=== PATIENT | female | born 1970 | race Caucasian/White ===

== ENCOUNTER → 2017-07-06 | Outpatient (CLI) | payer OTHER ==
[2016-05-16 10:30] VITALS: BP 156/77
[~2017-07-06] MED LIST: TRAM-48 PO
--- NOTE | 2017-07-06 15:42 | KCIC ---
ABDOMEN COMPLETE History: Abdominal pain Comparison: None. Findings: Multiple sonographic images of the abdomen are submitted. There is no abnormality of the visualized pancreas, distal body and tail obscured by bowel gas. There is mild diffuse coarsening of the echotexture of the liver. Right lobe of liver measured 14.1 cm longitudinal. Visualized abdominal aortic caliber is within normal limits at 1.7 cm although proximally obscured by bowel gas. There is limited segmental visualization of the proximal inferior vena cava, otherwise obscured by bowel gas. Spleen measured 10.1 cm, associated granulomas. Right kidney measured 12.5 x 5.6 x 5.1 cm. The left kidney measured 12.8 x 6.4 x 4.7 cm. There is no hydronephrosis of either kidney. Gallbladder is present without intraluminal abnormality, wall thickening, pericholecystic fluid. There is demonstrable flow in the main portal vein. Common bile duct is within normal limits at 0.4 cm. Impression: 1. There is likely mild hepatic steatosis. No other significant abnormality is identified. Midline structures are not as well visualized due to bowel gas. Electronically signed by: Adan Osorio MD (07/06/2017 3:39 PM) [facility]-[email or web address]
== END | disposition home or self-care (01) ==
LOC: KCIC US 14:52
PROVIDERS: ATTEND Internal Medicine Gastroenterology
DX: K76.0 Fatty (change of) liver, not elsewhere classified (principal)
CPT/HCPCS: 76700

== ENCOUNTER → 2017-07-12 | Day surgery (SDC) | payer OTHER ==
[~2017-07-12] MED LIST changes: +HYDROmorphone 2 MG/ML VIAL IV PRN; +IV RINGERS,LACTATED 1000ML 1,000 ML IV SCH; +LIDOCAINE 1% 1 ML SYRINGE. ID PRN; +METO50TA2 PO; +MORPHINE SULFATE 2 MG/ML DISP.SYRIN. IV PRN; +ONDANSETRON PF 4 MG/2 ML VIAL. IV PRN; +PROCHLORPERAZINE 10 MG/2 ML VIAL. IV PRN; +PROPOFOL 0 ML IV ONE; +PROPOFOL 20 ML IV ONE; +RANI150C PO; +fentaNYL PF VIAL 100 MCG/2 ML VIAL IV PRN
--- NOTE | 2017-07-12 08:09 | PDOC1 ---
HISTORY & PHYSICAL H&P Melida Pastor [id number] 1970 07/06/2017 02:10 PM 10/31 [facility] [place] OUR PATIENTS COME FIRST [address] [place] [address]. [phone] Patient: Melida Pastor Date of : 1970 Date: 07/06/2017 2:10 PM Visit Type: Consult This 47 year old female presents for Abdominal pain. History of Present Illness: 1. Abdominal pain Duration is 2 Weeks. Location is RUQ. There is radiation to back. The patient describes it as aching, gnawing and sharp. Context: after meals. Symptom is aggravated by heavy meals, respiration, physical exertion and bending over. Denies relieving factors. Additional information: Has mild elevation of WBC. Had been given Vimovo for pain control. C-XRay and rib series is negative. INTAKE COMMENTS: Intake Comments: Nurse Note: the pt is here today with complaints of epigastric pain, the pt states that it starts on the right side and moves to the center, the pt is also having back pain. The pt states that she is having loose "stringy " stool. PROBLEM LIST: No active problems PAST MEDICAL/SURGICAL HISTORY (Detailed) Disease/disorder Onset Date Management Date Comments 09/30/1984 Lump in left breast PP 06/30/2017 - she had 2 benign lumps removed from the left breast Syncope symptom 02/10/2016 PP 06/30/2017 - she had another episode of syncope on May. Medications (Active): Started Medication Directions Instruction Stopped 07/06/2017 Augmentin 875 mg-125 mg tablet take 1 tablet by oral route every 12 hours with food 06/29/2017 metoprolol succinate ER 50 mg tablet,extended release 24 hr take 1 tablet by oral route every day 07/06/2017 omeprazole 20 mg capsule,delayed release take 1 capsule (20MG) by ORAL route every day before breakfast 06/29/2017 tizanidine 4 mg capsule take 1 capsule by oral route daily at HS. 06/29/2017 Tylenol Extra Strength 500 mg tablet take 4 by Oral route bid at 8am and 2pm Allergies: Ingredient Reaction Medication Name Comment NO KNOWN ALLERGIES REVIEW OF SYSTEMS System Neg/Pos Details Constitutional Negative Chills, fever, malaise and weight loss. ENMT Negative Sore throat. Eyes Negative Double vision. Respiratory Negative Dyspnea and wheezing. Cardio Negative Chest pain and irregular heartbeat/palpitations. GI Positive See HPI. GI Negative See HPI. Negative Dysuria and hematuria. Endocrine Negative Cold intolerance and heat intolerance. Psych Negative Anxiety. Integumentary Negative Hives and rash. MS Negative Joint pain. Rik/Lymph Negative Easy bleeding and easy bruising. Allergic/Immuno Negative Food allergies. VITAL SIGNS Time BP mm/Hg Pulse /min Resp /min Temp F Ht ft Ht in Ht cm Wt lb Wt kg BMI kg/ m2 BSA m2 O2 Sat% 2:00 PM 130/96 100 98.0 5.0 7.00 170.18 202.40 91.807 31.70 97 Time Measured by 2:00 PM Anisa Rich PHYSICAL EXAM: Exam Findings Details Constitutional Normal Well developed. Eyes Normal Conjunctiva - Right: Normal, Left: Normal. Sclera - Right: Normal, Left: Normal. Nasopharynx Normal Lips/teeth/gums - Normal. Neck Exam Normal Inspection - Normal. Thyroid gland - Normal. Respiratory Normal Inspection - Normal. Auscultation - Normal. Cardiovascular Normal Regular rate and rhythm. No murmurs, gallops, or rubs. Vascular Normal Pulses - Carotids: Normal, Femoral: Normal, Dorsalis pedis: Normal. Abdomen Normal Inspection - Normal. Anterior palpation - No guarding. No abdominal tenderness. No hepatic enlargement. No splenic enlargement. No hernia. No Ascites. Skin Normal Inspection - Normal. Extremity Normal No edema. Psychiatric Normal Oriented to time, place, person, and situation. Appropriate mood and effect. Assessment/Plan # Detail Type Description 1. Assessment Right upper quadrant abdominal pain (R10.11). Patient Plan Await abdominal sonogram result. Continue Vimovo for now. If sonogram is negative then to consider EGD. 2. Assessment Calculus of gallbladder with acute cholecystitis without obstruction (K80.00). Patient Plan Schedule abdominal sonogram. Plan Orders Further diagnostic evaluations ordered today include(s) Abdomen Ultrasound; Limited (e.g., single organ, quadrant, follow-up) to be performed today. She is to schedule a follow-up visit with Susan Tinoco MD upon completion of work-up Electronically signed by: Susan Tinoco MD 07/06/2017 04:04 PM Document generated by: Susan Tinoco 07/06/2017 04:03 PM Rachel Lam MD, Family Practice; James Encarnacion MD Internal Medicine; Rachel Owens MD, Internal Medicine; Keo Tinoco MD Internal Medicine; Susan Tinoco MD, Gastroenterology; Nelson Snow MD, Rheumatology, S. Keaton Brandon, Physical Medicine/Rehab J. Rufus GARCIAN ------ 07/12/17 Patient seen and examined. No change in H&P. SUSAN TINOCO MD Jul 12, 2017 08:09
[2017-07-12 08:45] VITALS: BP 136/76
[2017-07-12 09:36] LABS: NEG OBC UR NEG; POS OBC UR POS
== END | disposition home or self-care (01) ==
LOC: ENDOS 06:48
PROVIDERS: ATTEND Internal Medicine Gastroenterology
DX: K21.9 Gastro-esophageal reflux disease without esophagitis (principal); F17.200 Nicotine dependence, unspecified, uncomplicated; I10 Essential (primary) hypertension; Z72.0 Tobacco use
CPT/HCPCS: 43235; 81025; J2704

== ENCOUNTER 2017-11-02 09:34 | Emergency (ER) | payer OTHER ==
[2017-11-02 10:40] LABS: INFLUENZA A PATIENT NEGATIVE (NEGATIVE); INFLUENZA B PATIENT NEGATIVE (NEGATIVE); OBC FLU VALID
[2017-11-02 10:42] LABS: NEGATIVE OBC STREP NEG; POSITIVE OBC STREP POS
== END 2017-11-02 11:01 | disposition home or self-care (01) ==
LOC: ER 09:34
DX: B34.9 Viral infection, unspecified (principal)
CPT/HCPCS: 87070; 87804; 87804-59; 87880; 99284

== ENCOUNTER 2018-07-18 12:37 | Emergency (ER) | payer OTHER ==
[~2018-07-18] VITALS: Ht 170.2 cm; Wt 90.7 kg
[~2018-07-18 12:37] MED LIST changes: -HYDROmorphone 2 MG/ML VIAL IV PRN; -IV RINGERS,LACTATED 1000ML 1,000 ML IV SCH; -LIDOCAINE 1% 1 ML SYRINGE. ID PRN; -METO50TA2 PO; +METO50TA6 PO; -MORPHINE SULFATE 2 MG/ML DISP.SYRIN. IV PRN; -ONDANSETRON PF 4 MG/2 ML VIAL. IV PRN; +OSEL75CA PO; -PROCHLORPERAZINE 10 MG/2 ML VIAL. IV PRN; -PROPOFOL 0 ML IV ONE; -PROPOFOL 20 ML IV ONE; -fentaNYL PF VIAL 100 MCG/2 ML VIAL IV PRN
[2018-07-18] MEDS ORDERED: KETOROLAC 30 MG/ML VIAL. IV ONE (13:30)
[2018-07-18] MEDS ORDERED: ONDANSETRON PF 4 MG/2 ML VIAL. IV ONE (13:30)
[2018-07-18] MEDS ORDERED: FAMOTIDINE 20 MG/2 ML VIAL IVP ONE (13:30)
[2018-07-18 13:38] LABS: BASO # 0.1 x10^3/uL (0.0-0.2); BASO % 1 % (0-3); EOS # 0.1 x10^3/uL (0.0-0.7); EOS % 1 % (0-3); HEMATOCRIT 43.2 % (36.0-47.0); HEMOGLOBIN 14.6 g/dL (12.0-15.5); LYMPH % 26 % (24-48); MEAN CORPUSCULAR HEMOGLOBIN 31 pg (25-35); MEAN CORPUSCULAR HGB CONC 34 g/dL (31-37); MEAN CORPUSCULAR VOLUME 93 fL (79-100); MONO # 0.6 x10^3/uL (0.0-1.1); MONO % 5 % (0-9); NEUT # 7.5 x10^3uL (1.8-7.7); NEUT % 66 % (31-73); PLATELET COUNT 266 x10^3/uL (140-400); RED BLOOD COUNT 4.66 x10^6/uL (3.50-5.40); RED CELL DISTRIBUTION WIDTH 13.8 % (11.5-14.5); WHITE BLOOD COUNT 11.3 x10^3/uL (4.0-11.0)
[2018-07-18 13:47] LABS: CALCIUM 9.8 mg/dL (8.5-10.1); CREATININE 0.8 mg/dL (0.6-1.0); GFR 76.6; POTASSIUM 4.2 mmol/L (3.5-5.1)
[2018-07-18 13:53] LABS: ALBUMIN 3.9 g/dL (3.4-5.0); ALBUMIN/GLOBULIN RATIO 1.1 (1.0-1.7); TOTAL BILIRUBIN 0.2 mg/dL (0.2-1.0); TOTAL PROTEIN 7.3 g/dL (6.4-8.2)
--- NOTE | 2018-07-18 14:02 | RAD ---
CHEST PA LATERAL History: Epigastric and left-sided chest pain today, smoking history Comparison: 12/06/2011 Findings: 2 views of the chest are submitted. There is no infiltrate, pneumothorax, or effusion. The cardiac silhouette is within normal limits in size. The trachea is in the midline. No acute osseous abnormality is identified. Impression: 1. There is no evidence of acute cardiopulmonary disease. Electronically signed by: Adan Osorio MD (07/18/2018 1:58 PM) [facility]-[id number]
--- NOTE | 2018-07-18 14:05 | PHYS DOC ---
Past Medical History Past Medical History: Hypertension Past Surgical History: , Tubal ligation Additional Past Surgical Histo: LEFT BREAST CYST REMOVAL Additional Information: 1 PK/DAY Alcohol Use: Occasionally Additional Information: "A COUPLE OF BEERS ON TUESDAY" Drug Use: None Adult General Chief Complaint Chief Complaint: CHEST PAIN HPI HPI Patient is a 48 year old female who presents with epigastric and left under the press pain that started today while she was at work. Patient states when it started she felt a little dizzy and nauseated. She rates her pain a 6 out of 10 and she did call her PCP which told her to come to the emergency room. Review of Systems Review of Systems Constitutional: Denies fever or chills [] Eyes: Denies change in visual acuity, redness, or eye pain [] HENT: Denies nasal congestion or sore throat [] Respiratory: Denies cough or shortness of breath [] Cardiovascular: No additional information not addressed in HPI [] GI: Epigastric abdominal pain, nausea. Denies vomiting, bloody stools or diarrhea [] : Denies dysuria or hematuria [] Musculoskeletal: Denies back pain or joint pain [] Integument: Denies rash or skin lesions [] Neurologic: Denies headache, focal weakness or sensory changes [] Endocrine: Denies polyuria or polydipsia [] All other systems were reviewed and found to be within normal limits, except as documented in this note. Current Medications Current Medications Current Medications Medications (Trade) Dose Ordered Sig/Alvin Start Time Stop Time Status Last Admin Dose Admin Famotidine (Pepcid Vial) 20 mg 1X ONCE 07/18/18 13:30 07/18/18 13:39 DC 07/18/18 13:47 20 MG Ketorolac Tromethamine (Toradol 30mg Vial) 30 mg 1X ONCE 07/18/18 13:30 07/18/18 13:39 DC 07/18/18 13:47 30 MG Ondansetron HCl (Zofran) 4 mg 1X ONCE 07/18/18 13:30 07/18/18 13:39 DC 07/18/18 13:47 4 MG Allergies Allergies Allergies Coded Allergies Type Severity Reaction Last Updated Verified No Known Drug Allergies 07/12/17 No Physical Exam Physical Exam Constitutional: Well developed, well nourished, no acute distress, non-toxic appearance. [] HENT: Normocephalic, atraumatic, bilateral external ears normal, oropharynx moist, no oral exudates, nose normal. [] Eyes: PERRLA, EOMI, conjunctiva normal, no discharge. [] Neck: Normal range of motion, no tenderness, supple, no stridor. [] Cardiovascular:Heart rate regular rhythm, no murmur [] Lungs & Thorax: Bilateral breath sounds clear to auscultation [] Abdomen: Bowel sounds normal, soft, Epigastric tenderness, no masses, no pulsatile masses. [] Skin: Warm, dry, no erythema, no rash. [] Back: No tenderness, no CVA tenderness. [] Extremities: No tenderness, no cyanosis, no clubbing, ROM intact, no edema. [] Neurologic: Alert and oriented X 3, normal motor function, normal sensory function, no focal deficits noted. [] Psychologic: Affect normal, judgement normal, mood normal. [] Current Patient Data Vital Signs Vital Signs Date Time Temp Pulse Resp B/P (MAP) Pulse Ox O2 Delivery O2 Flow Rate FiO2 07/18/18 12:44 98.2 82 18 148/75 (99) 96 Room Air 98.2 Lab Values Laboratory Tests Test 07/18/18 12:55 White Blood Count 11.3 x10^3/uL (4.0-11.0) H Red Blood Count 4.66 x10^6/uL (3.50-5.40) Hemoglobin 14.6 g/dL (12.0-15.5) Hematocrit 43.2 % (36.0-47.0) Mean Corpuscular Volume 93 fL (79-100) Mean Corpuscular Hemoglobin 31 pg (25-35) Mean Corpuscular Hemoglobin Concent 34 g/dL (31-37) Red Cell Distribution Width 13.8 % (11.5-14.5) Platelet Count 266 x10^3/uL (140-400) Neutrophils (%) (Auto) 66 % (31-73) Lymphocytes (%) (Auto) 26 % (24-48) Monocytes (%) (Auto) 5 % (0-9) Eosinophils (%) (Auto) 1 % (0-3) Basophils (%) (Auto) 1 % (0-3) Neutrophils # (Auto) 7.5 x10^3uL (1.8-7.7) Lymphocytes # (Auto) 3.0 x10^3/uL (1.0-4.8) Monocytes # (Auto) 0.6 x10^3/uL (0.0-1.1) Eosinophils # (Auto) 0.1 x10^3/uL (0.0-0.7) Basophils # (Auto) 0.1 x10^3/uL (0.0-0.2) Sodium Level 139 mmol/L (136-145) Potassium Level 4.2 mmol/L (3.5-5.1) Chloride Level 101 mmol/L (98-107) Carbon Dioxide Level 27 mmol/L (21-32) Anion Gap 11 (6-14) Blood Urea Nitrogen 13 mg/dL (7-20) Creatinine 0.8 mg/dL (0.6-1.0) Estimated GFR (Cockcroft-Gault) 76.6 BUN/Creatinine Ratio 16 (6-20) Glucose Level 140 mg/dL (70-99) H Calcium Level 9.8 mg/dL (8.5-10.1) Total Bilirubin 0.2 mg/dL (0.2-1.0) Aspartate Amino Transferase (AST) 19 U/L (15-37) Alanine Aminotransferase (ALT) 28 U/L (14-59) Alkaline Phosphatase 88 U/L (46-116) Troponin I Quantitative < 0.017 ng/mL (0.000-0.055) Total Protein 7.3 g/dL (6.4-8.2) Albumin 3.9 g/dL (3.4-5.0) Albumin/Globulin Ratio 1.1 (1.0-1.7) Lipase 164 U/L (73-393) Laboratory Tests 07/18/18 12:55 Laboratory Tests 07/18/18 12:55 EKG EKG Sinus rhythm and no STEMI Interpretation Time: [address] Hunter Radiology/Procedures Radiology/Procedures [] Impressions: [facility] [address] [place] [address] IMAGING REPORT Signed PATIENT: VINNIE MORALES ACCOUNT: [id number] : 1970 LOCATION: ER AGE: 48 SEX: F EXAM STATUS: REG ER ORD. PHYSICIAN: MT GRIFFIN APRN REASON: chest pain PROCEDURE: CHEST PA & LATERAL CHEST PA LATERAL History: Epigastric and left-sided chest pain today, smoking history Comparison: 12/06/2011 Findings: 2 views of the chest are submitted. There is no infiltrate, pneumothorax, or effusion. The cardiac silhouette is within normal limits in size. The trachea is in the midline. No acute osseous abnormality is identified. Impression: 1. There is no evidence of acute cardiopulmonary disease. Electronically signed by: Nneka Holt MD (07/18/2018 1:58 PM) [id number] DICTATED and SIGNED BY: NNEKA HOLT MD DATE: 07/18/18 2014 Course & Med Decision Making Course & Med Decision Making Patient is a 48 year old female who presents with epigastric and left under the press pain that started today while she was at work. Patient states when it started she felt a little dizzy and nauseated. She rates her pain a 6 out of 10 and she did call her PCP which told her to come to the emergency room. On examination patient has epigastric tenderness and tenderness in the upper left abdomen under her breast. Patient states that she feels slightly short of air but that she is anxious. Patient denies the pain radiating. Patient skin is pink warm and dry. Patient is neurologically intact. Patient has no extremity edema. Patient does smoke one pack a day and her only history is hypertension. Patient takes metoprolol. Patient denies any known drug allergies. Patient EKG shows sinus rhythm and no STEMI. Patient states that she had the same pain a year ago and had an echo, stress test, CT scans, gall bladder scan and wore a Holter monitor. Patient states that all exams came back without any acute findings. Patient states that the pain lasts for 2 months and came off and on and then suddenly went away. Patient states that this is the thing for pain. Patient's Wells score is 0) score is 0. She denies any numbness or tingling. Patient currently denies any urinary symptoms or nausea or dizziness. Patient's chest x-ray shows no acute findings. Patient's blood work is unremarkable except for a slightly elevated white blood cell count. Patient is in no respiratory distress become full sentences. Lungs are clear to auscultation. Patient denies any recent illness. He shouldn't is given Zofran, Pepcid, and Toradol in the ED and she states that this has helped her pain and she is feeling better. Patient states that she feels that she is starting to relax. Patient is stable and in no acute distress. Patient to be discharged home and follow up with her PCP. I told patient that she should maybe try to start taking Zantac twice a day to see if it helps. Patient was on Zantac in her past but she quit taking it. [] Dragon Disclaimer Dragon Disclaimer This electronic medical record was generated, in whole or in part, using a voice recognition dictation system. Departure Departure Impression: Primary Impression: Epigastric abdominal tenderness Additional Impression: Epigastric abdominal pain Disposition: 01 HOME, SELF-CARE Condition: STABLE Referrals: RICK DUVALL MD (PCP) Patient Instructions: Abdominal Pain (Nonspecific) Additional Instructions: Follow up with your PCP as soon as possible. Try to quit smoking. Start taking Zantac BID. Problem Qualifiers Primary Impression: Epigastric abdominal tenderness Presence of rebound: absent Qualified Codes: R10.816 - Epigastric abdominal tenderness MT GRIFFIN APRN Jul 18, 2018 14:05
[2018-07-18 14:45] VITALS: BP 140/93
--- NOTE | 2018-07-18 15:22 | EKG ---
[facility] [address] [place] [address] Test Date: 2018-07-18 Test Time: 12:46:58 Pat Name: VINNIE MORALES Department: Room: Gender: F Welt Stitcher: : 1970 Requested By: MT GRIFFIN Order Number: [id number] Reading MD: Bandar Chandra MD Measurements Intervals [place] Rate: 87 P: 54 [place]: 136 QRS: 71 QRSD: 98 T: 31 QT: 358 QTc: 437 Interpretive Statements SINUS RHYTHM Electronically Signed On 07-19-2018 8:08:56 CDT by Bandar Chandra MD
== END 2018-07-18 14:53 | disposition home or self-care (01) ==
LOC: ER 12:37
DX: R10.13 Epigastric pain (principal); R42 Dizziness and giddiness; R11.0 Nausea; I10 Essential (primary) hypertension; Z98.51 Tubal ligation status; F17.200 Nicotine dependence, unspecified, uncomplicated
CPT/HCPCS: 36415; 71046; 80053; 83690; 84484; 85025; 93005; 96374; 96375; 99285; J1885; J2405; S0028

== ENCOUNTER 2019-10-05 15:49 | Emergency (ER) | payer OTHER ==
[~2019-10-05] VITALS: Ht 170.2 cm; Wt 90.7 kg
[2019-10-05 16:31] VITALS: BP 175/96
[2019-10-05 16:39] LABS: BILIRUBIN,URINE NEGATIVE (NEG); CLARITY,URINE CLOUDY; COLOR,URINE YELLOW; NITRITE,URINE POSITIVE (NEG); PROTEIN,URINE >=300 mg/dL (NEG-TRACE)
[2019-10-05 16:48] LABS: BACTERIA,URINE MODERATE /HPF (0-FEW); WBC,URINE TNTC /HPF (0-4)
[2019-10-05 16:49] LABS: SQUAMOUS EPITHELIAL CELL,UR OCC /LPF
[2019-10-05] MEDS ORDERED: PHEN100T82 PO (17:37)
[2019-10-05] MEDS ORDERED: CIPR500T94 PO (17:37)
--- NOTE | 2019-10-05 17:38 | PHYS DOC ---
Past Medical History Past Medical History: Hypertension Past Surgical History: , Tubal ligation Additional Past Surgical Histo: LEFT BREAST CYST REMOVAL Alcohol Use: Occasionally Drug Use: None Adult General Chief Complaint Chief Complaint: PAIN ON URINATION [facility] HPI Patient is a 49 year old female who presents to the emergency department with complaints of dysuria for the last 3 days. Patient denies any fever, cough, vomiting, diarrhea, abdominal pain, shortness of breath, or hematuria. She states she has felt nauseated at times and had some slight increase in lower back pain. Patient also reports suprapubic pain after urination. Denies any recent UTI, irregular vaginal discharge, or vaginal bleeding. All other ROS is neg unless otherwise noted in HPI. Review of Systems Review of Systems See Above Allergies Allergies Allergies Coded Allergies Type Severity Reaction Last Updated Verified No Known Drug Allergies 07/12/17 No Physical Exam Physical Exam See Above Constitutional: Well developed, well nourished, no acute distress, non-toxic appearance. [] HENT: Normocephalic, atraumatic, bilateral external ears normal, oropharynx moist, no oral exudates, nose normal. [] Eyes: PERRLA, EOMI, conjunctiva normal, no discharge. [] Neck: Normal range of motion, no stridor. [] Cardiovascular:Heart rate regular rhythm, no murmur [] Lungs & Thorax: Bilateral breath sounds clear to auscultation,verbalized an understanding of home care, medications, follow-up, and return to ED instructions and was in agreement with the plan of care. [] Abdomen: soft, no tenderness, no masses, no pulsatile masses. [] Skin: Warm, dry, no erythema, no rash. [] Back: No CVA tenderness. [] Extremities: No cyanosis, ROM intact Neurologic: Alert and oriented X 3, no focal deficits noted. [] Psychologic: Affect normal, judgement normal, mood normal. [] Current Patient Data Vital Signs Vital Signs Date Time Temp Pulse Resp B/P (MAP) Pulse Ox O2 Delivery O2 Flow Rate FiO2 10/05/19 16:31 98.3 77 16 175/96 (122) 99 Room Air 98.3 Lab Values Laboratory Tests Test 10/05/19 16:17 10/05/19 16:19 Urine Collection Type Unknown Urine Color Yellow Urine Clarity Cloudy Urine pH 6.0 Urine Specific [place] >=1.030 Urine Protein >=300 mg/dL (NEG-TRACE) Urine Glucose (UA) Negative mg/dL (NEG) Urine Ketones (Stick) Negative mg/dL (NEG) Urine Blood Large (NEG) Urine Nitrite Positive (NEG) Urine Bilirubin Negative (NEG) Urine Urobilinogen Dipstick 1.0 mg/dL (0.2 mg/dL) Urine Leukocyte Esterase Large (NEG) Urine RBC 6-10 /HPF (0-2) Urine WBC Tntc /HPF (0-4) Urine Squamous Epithelial Cells Occ /LPF Urine Bacteria Moderate /HPF (0-FEW) POC Urine HCG, Qualitative Hcg negative (Negative) EKG EKG [] Radiology/Procedures Radiology/Procedures [] Course & Med Decision Making Course & Med Decision Making Pertinent Labs and Imaging studies reviewed. (See chart for details) [] Dragon Disclaimer Dragon Disclaimer This electronic medical record was generated, in whole or in part, using a voice recognition dictation system. Departure Departure Impression: Primary Impression: Urinary tract infection Disposition: HOME, SELF-CARE Condition: STABLE Referrals: RICK DUVALL MD (PCP) Patient Instructions: Urinary Tract Infection, [id number] Additional Instructions: Fill prescription(s) and use as directed. Avoid bladder irritants such as caffeine, carbonation, and spicy foods. Increase clear fluids. Follow up with your primary care doctor if symptoms persist, return to the ER if symptoms worsen. Scripts Phenazopyridine Hcl (PYRIDIUM) 100 Mg Tablet 1 TAB PO TID for urinary discomfort for 3 Days, #9 TAB 0 Refills Prov: MAGUE YOUNG APRN 10/05/19 Ciprofloxacin Hcl (CIPRO) 500 Mg Tablet 1 TAB PO BID for 3 Days, #6 TAB 0 Refills Prov: MAGUE YOUNG APRN 10/05/19 Problem Qualifiers Primary Impression: Urinary tract infection Urinary tract infection type: acute cystitis Hematuria presence: without hematuria Qualified Codes: N30.00 - Acute cystitis without hematuria MAGUE YOUNG APRN Oct 05, 2019 17:37
== END 2019-10-05 17:44 | disposition home or self-care (01) ==
LOC: ER 15:49
DX: N30.00 Acute cystitis without hematuria (principal); I10 Essential (primary) hypertension; Z98.890 Other specified postprocedural states; Z98.51 Tubal ligation status
CPT/HCPCS: 81001; 81025; 87086; 99284

== ENCOUNTER 2020-04-08 10:09 | Emergency (ER) | payer OTHER ==
[~2020-04-08] VITALS: Ht 170.2 cm; Wt 90.4 kg
[~2020-04-08 10:09] MED LIST changes: +CIPR500T94 PO; +PHEN100T82 PO
[2020-04-08 11:37] LABS: BASO # 0.1 x10^3/uL (0.0-0.2); BASO % 1 % (0-3); EOS # 0.1 x10^3/uL (0.0-0.7); EOS % 1 % (0-3); HEMATOCRIT 42.7 % (36.0-47.0); HEMOGLOBIN 14.8 g/dL (12.0-15.5); LYMPH # 2.4 x10^3/uL (1.0-4.8); LYMPH % 22 % (24-48); MEAN CORPUSCULAR HEMOGLOBIN 32 pg (25-35); MEAN CORPUSCULAR HGB CONC 35 g/dL (31-37); MEAN CORPUSCULAR VOLUME 93 fL (79-100); MONO # 0.6 x10^3/uL (0.0-1.1); MONO % 6 % (0-9); NEUT # 7.8 x10^3/uL (1.8-7.7); NEUT % 71 % (31-73); PLATELET COUNT 240 x10^3/uL (140-400); RED BLOOD COUNT 4.61 x10^6/uL (3.50-5.40); RED CELL DISTRIBUTION WIDTH 13.5 % (11.5-14.5); WHITE BLOOD COUNT 10.9 x10^3/uL (4.0-11.0)
[2020-04-08 12:02] LABS: CALCIUM 8.9 mg/dL (8.5-10.1); CREATININE 0.8 mg/dL (0.6-1.0); GFR 76.2; POTASSIUM 3.7 mmol/L (3.5-5.1)
[2020-04-08 12:05] LABS: ALBUMIN 3.7 g/dL (3.4-5.0); TOTAL BILIRUBIN 0.3 mg/dL (0.2-1.0); TOTAL PROTEIN 7.3 g/dL (6.4-8.2)
--- NOTE | 2020-04-08 12:19 | RAD ---
VENOUS LOWER EXTREMITY LEFT History: Reason: left leg swelling / Spl. Instructions: / History: Comparison: None. Discussion: Multiple longitudinal and transverse high resolution real-time images of the venous system of left lower extremity were obtained with color and Doppler sampling. The common femoral, superficial femoral, popliteal and proximal calf veins are all patent and demonstrate normal flow and compressibility. Normal respiratory phasicity and augmentation is present. Impression: 1. No evidence of deep vein thrombosis. Electronically signed by: Antony Sutton DO (04/08/2020 12:16 PM) [id number]
--- NOTE | 2020-04-08 12:31 | RAD ---
CHEST AP ONLY History: Reason: SHORT OF BREATH / Spl. Instructions: / History: Comparison: July 18, 2018 Findings: No consolidation or pleural effusion. Normal heart size. No pneumothorax. Impression: 1. No acute cardiopulmonary process. Electronically signed by: Antony Sutton DO (04/08/2020 12:28 PM) [id number]
--- NOTE | 2020-04-08 12:34 | PHYS DOC ---
Past Medical History Past Medical History: Hypertension Past Surgical History: , Tubal ligation Additional Past Surgical Histo: LEFT BREAST CYST REMOVAL Smoking Status: Current Every Day Smoker Alcohol Use: Occasionally Drug Use: None General Adult EDM: Chief Complaint: LOWER EXTREMITY SWELLING HPI: HPI: Patient is a 49 year old female who presented for evaluation of left knee pain, spreading to left ankle and left calf area for several days, no injury. Patient also complains of swelling in her left calf. She also has shortness of air, no chest pain, no cough,no fever. No recent travel or operation. no hx of blood clot disorder, no hx of diabetic or CAD. Review of Systems: Review of Systems: Constitutional: Denies fever or chills. [] Eyes: Denies change in visual acuity. [] HENT: Denies nasal congestion or sore throat. [] Respiratory: Denies cough or shortness of breath. [] Cardiovascular: Denies chest pain or edema. [] GI: Denies abdominal pain, nausea, vomiting, bloody stools or diarrhea. [] : Denies dysuria. [] Musculoskeletal: Denies back pain or joint pain. [] Integument: Denies rash. [] Neurologic: Denies headache, focal weakness or sensory changes. [] Endocrine: Denies polyuria or polydipsia. [] Lymphatic: Denies swollen glands. [] Psychiatric: Denies depression or anxiety. [] Heart Score: Risk Factors: Risk Factors: DM, Current or recent (<one month) smoker, HTN, HLP, family history of CAD, obesity. Risk Scores: Score 0 - 3: 2.5% MACE over next 6 weeks - Discharge Home Score 4 - 6: 20.3% MACE over next 6 weeks - Admit for Clinical Observation Score 7 - 10: 72.7% MACE over next 6 weeks - Early Invasive Strategies Allergies: Allergies: Allergies Coded Allergies Type Severity Reaction Last Updated Verified No Known Drug Allergies 07/12/17 No Physical Exam: PE: Constitutional: Well developed, well nourished, no acute distress, non-toxic appearance. [] HENT: Normocephalic, atraumatic, bilateral external ears normal, oropharynx moist, no oral exudates, nose normal. [] Eyes: PERRLA, EOMI, conjunctiva normal, no discharge. [] Neck: Normal range of motion, no tenderness, supple, no stridor. [] Cardiovascular:Heart rate regular rhythm, no murmur [] Lungs & Thorax: Bilateral breath sounds clear to auscultation [] Abdomen: Bowel sounds normal, soft, no tenderness, no masses, no pulsatile masses. [] Skin: Warm, dry, no erythema, no rash. [] Back: No tenderness, no CVA tenderness. [] Extremities: Left calf is tender to palpation, no swelling,no redness, no cyanosis, no clubbing, ROM intact, no edema. Left tender with range of motion. no joint swelling Neurologic: Alert and oriented X 3, normal motor function, normal sensory function, no focal deficits noted. [] Psychologic: Affect normal, judgement normal, mood normal. [] Current Patient Data: Labs: Laboratory Tests Test 04/08/20 10:22 04/08/20 10:30 POC Urine HCG, Qualitative Hcg negative (Negative) White Blood Count 10.9 x10^3/uL (4.0-11.0) Red Blood Count 4.61 x10^6/uL (3.50-5.40) Hemoglobin 14.8 g/dL (12.0-15.5) Hematocrit 42.7 % (36.0-47.0) Mean Corpuscular Volume 93 fL (79-100) Mean Corpuscular Hemoglobin 32 pg (25-35) Mean Corpuscular Hemoglobin Concent 35 g/dL (31-37) Red Cell Distribution Width 13.5 % (11.5-14.5) Platelet Count 240 x10^3/uL (140-400) Neutrophils (%) (Auto) 71 % (31-73) Lymphocytes (%) (Auto) 22 % (24-48) L Monocytes (%) (Auto) 6 % (0-9) Eosinophils (%) (Auto) 1 % (0-3) Basophils (%) (Auto) 1 % (0-3) Neutrophils # (Auto) 7.8 x10^3/uL (1.8-7.7) H Lymphocytes # (Auto) 2.4 x10^3/uL (1.0-4.8) Monocytes # (Auto) 0.6 x10^3/uL (0.0-1.1) Eosinophils # (Auto) 0.1 x10^3/uL (0.0-0.7) Basophils # (Auto) 0.1 x10^3/uL (0.0-0.2) D-Dimer (Gabriella) < 0.27 ug/mlFEU Sodium Level 141 mmol/L (136-145) Potassium Level 3.7 mmol/L (3.5-5.1) Chloride Level 103 mmol/L (98-107) Carbon Dioxide Level 25 mmol/L (21-32) Anion Gap 13 (6-14) Blood Urea Nitrogen 17 mg/dL (7-20) Creatinine 0.8 mg/dL (0.6-1.0) Estimated GFR (Cockcroft-Gault) 76.2 BUN/Creatinine Ratio 21 (6-20) H Glucose Level 144 mg/dL (70-99) H Calcium Level 8.9 mg/dL (8.5-10.1) Total Bilirubin 0.3 mg/dL (0.2-1.0) Aspartate Amino Transferase (AST) 20 U/L (15-37) Alanine Aminotransferase (ALT) 29 U/L (14-59) Alkaline Phosphatase 96 U/L (46-116) Total Protein 7.3 g/dL (6.4-8.2) Albumin 3.7 g/dL (3.4-5.0) Albumin/Globulin Ratio 1.0 (1.0-1.7) Laboratory Tests 04/08/20 10:30 Laboratory Tests 04/08/20 10:30 Vital Signs: Vital Signs Date Time Temp Pulse Resp B/P (MAP) Pulse Ox O2 Delivery O2 Flow Rate FiO2 04/08/20 10:35 98.3 110 16 171/86 (114) 96 Room Air 98.3 EKG: EKG: [] Radiology/Procedures: Radiology/Procedures: [][facility] [address] [place] [address] IMAGING REPORT Signed PATIENT: VINNIE MORALES ACCOUNT: [id number] : 1970 LOCATION: ER AGE: 49 SEX: F EXAM STATUS: REG ER ORD. PHYSICIAN: ANNI ROCA DO REASON: left leg swelling PROCEDURE: VENOUS LOWER EXTREMITY LEFT VENOUS LOWER EXTREMITY LEFT History: Reason: left leg swelling / Spl. Instructions: / History: Comparison: None. Discussion: Multiple longitudinal and transverse high resolution real-time images of the venous system of left lower extremity were obtained with color and Doppler sampling. The common femoral, superficial femoral, popliteal and proximal calf veins are all patent and demonstrate normal flow and compressibility. Normal respiratory phasicity and augmentation is present. Impression: 1. No evidence of deep vein thrombosis. Electronically signed by: Antony Sutton DO (04/08/2020 12:16 PM) [id number] DICTATED and SIGNED BY: ANTONY SUTTON DO DATE: 04/08/20 1216 [facility] [address] [place], [place] [id number] IMAGING REPORT Signed PATIENT: VINNIE MORALES ACCOUNT: [id number] : 1970 LOCATION: ER AGE: 49 SEX: F EXAM STATUS: REG ER ORD. PHYSICIAN: ANNI ROCA DO REASON: SHORT OF BREATH PROCEDURE: CHEST AP ONLY CHEST AP ONLY History: Reason: SHORT OF BREATH / Spl. Instructions: / History: Comparison: July 18, 2018 Findings: No consolidation or pleural effusion. Normal heart size. No pneumothorax. Impression: 1. No acute cardiopulmonary process. Electronically signed by: Antony Sutton DO (04/08/2020 12:28 PM) [id number] DICTATED and SIGNED BY: ANTONY SUTTON DO DATE: 04/08/20 1228 Course & Med Decision Making: Course & Med Decision Making Pertinent Labs and Imaging studies reviewed. (See chart for details) [] Dragon Disclaimer: Dragon Disclaimer: This electronic medical record was generated, in whole or in part, using a voice recognition dictation system. Departure Departure Impression: Primary Impression: Arthritis of left knee Disposition: 01 HOME, SELF-CARE Condition: IMPROVED Referrals: RICK DUVALL MD (PCP) please follow up with your doctor for a referral to [facility] FOR FURTHER EVALUATION AND TREATMENT Patient Instructions: Rheumatoid Arthritis Justicifation of Admission Dx: Justifications for Admission: Justification of Admission Dx: N/A ANNI ROCA DO Apr 08, 2020 12:34
[2020-04-08 13:15] VITALS: BP 129/79
--- NOTE | 2020-04-08 13:45 | EKG ---
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 Electronically Signed On 04-11-2020 16:09:56 CDT by Marcleo Carbajal
== END 2020-04-08 13:32 | disposition home or self-care (01) ==
LOC: ER 10:09
DX: M17.12 Unilateral primary osteoarthritis, left knee (principal); F17.200 Nicotine dependence, unspecified, uncomplicated; I10 Essential (primary) hypertension
CPT/HCPCS: 36415; 71045; 80053; 81025; 85025; 85379; 93005; 93971; 99285-25